=== PATIENT | female | born 1980 | race Caucasian/White ===

== ENCOUNTER → 2018-02-06 | Outpatient (CLI) | payer OTHER ==
--- NOTE | 2018-02-06 12:19 | P.STRESS ---
- Stress Test Note Stress Test Results/Findings: Exam Performed: stress test Exam Date: 02/06/18 Reason for Exam: PALPITATIONS Height: 5 ft 6 in Weight: 58.06 kg Protocol: JOHN Stage: 4 Duration of Exercise: 10:00 Resting Heart Rate: 132 Resting Blood Pressure: 130/74 Maximum Achieved Heart Rate: 196 Maximum Achieved Blood Pressure: 173/76 85% PMHR: 156 100% PMHR: 183 METS: 11.7 Technologist Comment: Stress Test Results/Findings: Baseline heart rate 132 beats a minute Baseline blood pressure 130/74 mmHg baseline 12-lead ECG shows sinus tachycardia without any ST segment abnormalities 6 Patient exercised on a John protocol for 10 minutes achieving a peak heart rate of 196 beats a minute normal blood pressure response to excise She did not appear short of breath either at rest or with exertion There is no ECG ohms for ischemia no arrhythmias noted Impression Sinus tachycardia at baseline No ECG ohms for ischemia no arrhythmias noted with exercise
--- NOTE | 2018-02-06 12:41 | ECHOF ---
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 This was a technically good study. LV size, wall thickness and systolic function are normal, with an EF greater than 55%. The left teri tricular size is normal. The right ventricle is normal in size. The left atrial size is normal. The right atrial size is normal. Functionally bicuspid aortic valve. There is trace mitral regurgitation. Mild tricuspid regurgitation present. There is no evidence of pulmonary hypertension. The right v entricular systolic pressure, as measured by Doppler, is 17.25mmHg. Trace/mild (physiologic) pulmonic regurgitation. The aortic root size is normal. There is no pericardial effusion. CONCLUSIONS -------- 1. LV size, wall thickness and systolic function are normal, with an EF greater than 55%. 2. The left ventricular size is normal. 3. The right ventricle is normal in size. 4. The left atrial size is normal. 5. The right atrial size is normal. 6. Functionally bicuspid aortic valve. 7. There is trace mitral regurgitation. 8. Mild tricuspid regurgitation present. 9. There is no evidence of pulmonary hypertension. 10. The right ventricular systolic pressure, as measured by Doppler, is 17.25mmHg. 11. Trace/mild (physiologic) pulmonic regurgitation. 12. The aortic root size is normal. 13. There is no pericardial effusion. SPORTS CARTOONIST: Natalie Infante RDCS
== END | disposition home or self-care (01) ==
LOC: RADNMMAIN 10:47
PROVIDERS: ATTEND Family Medicine
DX: I07.1 Rheumatic tricuspid insufficiency (principal); Q23.1 Congenital insufficiency of aortic valve
CPT/HCPCS: 93017; 93306

== ENCOUNTER → 2018-03-02 | Outpatient (CLI) | payer OTHER | END | disposition home or self-care (01) | LOC: LABWHC1 15:34 | PROVIDERS: ATTEND Internal Medicine Clinical Cardiac Electrophysiology | DX: R00.0 Tachycardia, unspecified (principal); R00.2 Palpitations | CPT/HCPCS: 36415; 84443 ==

== ENCOUNTER → 2018-03-17 | Outpatient (CLI) | payer OTHER ==
--- NOTE | 2018-03-17 14:30 | XR ---
EXAMINATION TYPE: XR knee complete LT DATE OF EXAM: 03/17/2018 COMPARISON: NONE HISTORY: 37 year-old female left knee pain, posterior and lateral swelling for 2 days TECHNIQUE: 3 views FINDINGS: There is a moderate knee joint effusion. No acute fracture, subluxation, or dislocation. IMPRESSION: Moderate knee joint effusion. No acute osseous abnormality seen. If concern for internal derangement, MRI can be performed.
== END | disposition home or self-care (01) ==
LOC: RADXRMAIN 10:01
PROVIDERS: ATTEND Physician Assistant
DX: M25.462 Effusion, left knee (principal)

== ENCOUNTER → 2018-03-20 | Outpatient (CLI) | payer OTHER ==
--- NOTE | 2018-03-20 12:37 | MR ---
EXAMINATION TYPE: MR knee LT wo con DATE OF EXAM: 03/20/2018 COMPARISON: X-ray dated 03/17/2018 HISTORY: Left knee pain TECHNIQUE: Multiplanar, multisequence imaging of the left knee is performed without IV contrast. FINDINGS: MEDIAL MENISCUS: Anterior and posterior horns are intact without tear. Linear signal posterior horn c ompatible with mucoid degeneration. LATERAL MENISCUS: Increased signal involving the posterior horn is suggestive previous surgery.. CRUCIATE LIGAMENTS: The anterior and posterior cruciate ligaments are intact and unremarkable. COLLATERAL LIGAMENTS: The medial collateral ligament and lateral collateral ligament complex are inta ct and unremarkable. EXTENSOR MECHANISM: Visualized quadriceps and patellar tendons are intact. EFFUSION: No significant suprapatellar joint effusion. POPLITEAL CYST: No popliteal/patel cyst. TRICOMPARTMENT SPACES: Joint spaces are preserved. Cartilage is preserved. BONE MARROW SIGNAL: Faint abnormal signal involving the anterior medial and lateral distal femur sugg estive of bone contusion.. IMPRESSION: 1. Postsurgical change involving the posterior horn lateral meniscus. 2. Nonspecific vague marrow changes involving the distal femur correlate clinically may represent are as of bone contusion. No fracture line.
== END | disposition home or self-care (01) ==
LOC: RADMRIMAIN 09:17
PROVIDERS: ATTEND Physician Assistant
DX: M89.8X5 Other specified disorders of bone, thigh (principal); Z98.890 Other specified postprocedural states

== ENCOUNTER 2020-02-16 08:20 | Emergency (ER) | payer OTHER ==
[2020-02-16 08:25] VITALS: TEMP 98
[2020-02-16] MEDS ORDERED: SODIUM CHLORIDE 0.9% 500 ML 500 ML IV STA (08:45)
[2020-02-16] MEDS ORDERED: KETOROLAC 30 MG/ML 1 ML VIAL IVP STA (08:45)
[2020-02-16] MEDS ORDERED: SODIUM CHLORIDE 0.9% 1,000 ML IV STA (08:45)
--- NOTE | 2020-02-16 09:03 | ED ---
Abdominal Pain HPI - General Chief Complaint: Abdominal Pain Stated Complaint: Abd Pain Time Seen by Provider: 02/16/20 08:30 Source: patient, RN notes reviewed Mode of arrival: ambulatory Limitations: no limitations - History of Present Illness Initial Comments: This is a 39-year-old female with a benign history states her last couple ones she did have an intermittent abdominal pain but over last 2 days has had some generalized abdominal pain does seem to worse with eating food she feels bloated. The pain is achy. Currently she is states is about a 4/10 severity does get up to 6-8/10 however. She's had some diarrhea with it she currently is on her menstrual period she states is no difference in this. Compared to others. No personal history or family history of any abdominal or gynecological issues. She also states she's been having heartburn lately has been taking Prilosec. This does not seem to be helping much MD Complaint: abdominal pain - Related Data Home Medications Medication Instructions Recorded Confirmed Omeprazole Magnesium [PriLOSEC OTC] 20 mg PO BID 02/16/20 02/16/20 Previous Rx's Medication Instructions Recorded Dicyclomine [Bentyl] 10 mg PO TID #15 capsule 02/16/20 Omeprazole [PriLOSEC] 20 mg PO AC-BID #14 cap 02/16/20 Allergies Allergy/AdvReac Type Severity Reaction Status Date / Time No Known Allergies Allergy Verified 02/16/20 09:46 Review of Systems ROS Statement: Those systems with pertinent positive or pertinent negative responses have been documented in the HPI. ROS Other: All systems not noted in ROS Statement are negative. Past Medical History Past Medical History: No Reported History Additional Past Medical History / Comment(s): Sinus tach History of Any Multi-Drug Resistant Organisms: None Reported Additional Past Surgical History / Comment(s): tonsilectomy, heart ablation. Past Psychological History: Anxiety Smoking Status: Never smoker Past Alcohol Use History: Occasional Past Drug Use History: None Reported General Exam - General Exam Comments Initial Comments: This is a well-developed well-nourished awake alert oriented 3 female Limitations: no limitations General appearance: alert, anxious Head exam: Present: atraumatic, normocephalic, normal inspection Eye exam: Present: normal appearance, PERRL, EOMI. Absent: scleral icterus, conjunctival injection, periorbital swelling ENT exam: Present: normal exam, mucous membranes moist Neck exam: Present: normal inspection. Absent: tenderness, meningismus, lymphadenopathy Respiratory exam: Present: normal lung sounds bilaterally. Absent: respiratory distress, wheezes, rales, rhonchi, stridor Cardiovascular Exam: Present: regular rate, normal rhythm, normal heart sounds. Absent: systolic murmur, diastolic murmur, rubs, gallop, clicks GI/Abdominal exam: Present: soft, tenderness (Some tenderness palpation over the epigastric left upper quadrant but especially left lower quadrant area.), normal bowel sounds. Absent: distended, guarding, rebound, rigid Extremities exam: Present: normal inspection, full ROM, normal capillary refill. Absent: tenderness, pedal edema, joint swelling, calf tenderness Back exam: Present: normal inspection Neurological exam: Present: alert, oriented X3, CN II-XII intact Psychiatric exam: Present: normal affect, normal mood Skin exam: Present: warm, dry, intact, normal color. Absent: rash Course Vital Signs 02/16/20 08:22 Temperature 98 F Pulse Rate 122 H Respiratory 18 Rate Blood Pressure 166/82 O2 Sat by Pulse 99 Oximetry Medical Decision Making - Medical Decision Making I did a long discussion with patient he is feeling somewhat improved after the medication and fluids were rendered. She has no family practice doctor or general practitioner I did advise she 5 one she will be referred over to GI for the abdominal issues. She has been taking 800 mg of Motrin she'll be placed on pain medication for this as well as Bentyl. - Lab Data Result diagrams: 02/16/20 09:00 02/16/20 09:00 Lab Results 02/16/20 02/16/20 02/16/20 Range/Units 09:00 09:00 09:00 WBC 4.0 (3.8-10.6) k/uL RBC 3.76 L (3.80-5.40) m/uL Hgb 10.6 L (11.4-16.0) gm/dL Hct 32.8 L (34.0-46.0) % MCV 87.5 (80.0-100.0) fL MCH 28.1 (25.0-35.0) pg MCHC 32.1 (31.0-37.0) g/dL RDW 14.8 (11.5-15.5) % Plt Count 280 (150-450) k/uL Neutrophils % 59 % Lymphocytes % 26 % Monocytes % 7 % Eosinophils % 4 % Basophils % 1 % Neutrophils # 2.4 (1.3-7.7) k/uL Lymphocytes # 1.0 (1.0-4.8) k/uL Monocytes # 0.3 (0-1.0) k/uL Eosinophils # 0.2 (0-0.7) k/uL Basophils # 0.0 (0-0.2) k/uL Sodium 136 L (137-145) mmol/L Potassium 4.4 (3.5-5.1) mmol/L Chloride 103 (98-107) mmol/L Carbon Dioxide 26 (22-30) mmol/L Anion Gap 7 mmol/L BUN 10 (7-17) mg/dL Creatinine 0.64 (0.52-1.04) mg/dL Est GFR (CKD-EPI)AfAm >90 (>60 ml/min/1.73 sqM) Est GFR (CKD-EPI)NonAf >90 (>60 ml/min/1.73 sqM) Glucose 100 H (74-99) mg/dL Plasma Lactic Acid Fermin 0.8 (0.7-2.0) mmol/L Calcium 9.2 (8.4-10.2) mg/dL Magnesium 1.6 (1.6-2.3) mg/dL Total Bilirubin 0.5 (0.2-1.3) mg/dL AST 81 H (14-36) U/L ALT 41 H (4-34) U/L Alkaline Phosphatase 91 (38-126) U/L Total Protein 7.5 (6.3-8.2) g/dL Albumin 4.3 (3.5-5.0) g/dL Amylase 42 (30-110) U/L Lipase 57 (23-300) U/L Urine Color Urine Appearance (Clear) Urine pH (5.0-8.0) Ur Specific Gem (1.001-1.035) Urine Protein (Negative) Urine Glucose (UA) (Negative) Urine Ketones (Negative) Urine Blood (Negative) Urine Nitrite (Negative) Urine Bilirubin (Negative) Urine Urobilinogen (<2.0) mg/dL Ur Leukocyte Esterase (Negative) Urine RBC (0-5) /hpf Urine WBC (0-5) /hpf Ur Squamous Epith Cells (0-4) /hpf Hyaline Casts (0-2) /lpf Urine Mucus (None) /hpf Urine HCG, Qual (Not Detectd) 02/16/20 02/16/20 Range/Units 09:07 09:07 WBC (3.8-10.6) k/uL RBC (3.80-5.40) m/uL Hgb (11.4-16.0) gm/dL Hct (34.0-46.0) % MCV (80.0-100.0) fL MCH (25.0-35.0) pg MCHC (31.0-37.0) g/dL RDW (11.5-15.5) % Plt Count (150-450) k/uL Neutrophils % % Lymphocytes % % Monocytes % % Eosinophils % % Basophils % % Neutrophils # (1.3-7.7) k/uL Lymphocytes # (1.0-4.8) k/uL Monocytes # (0-1.0) k/uL Eosinophils # (0-0.7) k/uL Basophils # (0-0.2) k/uL Sodium (137-145) mmol/L Potassium (3.5-5.1) mmol/L Chloride (98-107) mmol/L Carbon Dioxide (22-30) mmol/L Anion Gap mmol/L BUN (7-17) mg/dL Creatinine (0.52-1.04) mg/dL Est GFR (CKD-EPI)AfAm (>60 ml/min/1.73 sqM) Est GFR (CKD-EPI)NonAf (>60 ml/min/1.73 sqM) Glucose (74-99) mg/dL Plasma Lactic Acid Fermin (0.7-2.0) mmol/L Calcium (8.4-10.2) mg/dL Magnesium (1.6-2.3) mg/dL Total Bilirubin (0.2-1.3) mg/dL AST (14-36) U/L ALT (4-34) U/L Alkaline Phosphatase (38-126) U/L Total Protein (6.3-8.2) g/dL Albumin (3.5-5.0) g/dL Amylase (30-110) U/L Lipase (23-300) U/L Urine Color Yellow Urine Appearance Clear (Clear) Urine pH 5.5 (5.0-8.0) Ur Specific Gem 1.011 (1.001-1.035) Urine Protein Negative (Negative) Urine Glucose (UA) Negative (Negative) Urine Ketones Trace H (Negative) Urine Blood Moderate H (Negative) Urine Nitrite Negative (Negative) Urine Bilirubin Negative (Negative) Urine Urobilinogen <2.0 (<2.0) mg/dL Ur Leukocyte Esterase Negative (Negative) Urine RBC 2 (0-5) /hpf Urine WBC <1 (0-5) /hpf Ur Squamous Epith Cells <1 (0-4) /hpf Hyaline Casts 1 (0-2) /lpf Urine Mucus Rare H (None) /hpf Urine HCG, Qual Not Detected (Not Detectd) - Radiology Data Radiology results: report reviewed (I did review the imaging and report no ev idence of acute findings there is evidence of a hemangioma in the liver which patient has a history of she knows. Also a large uterus though the patient is not symptomatic in the lower abdomen.), image reviewed Disposition Clinical Impression: Abdominal pain, Diarrhea Disposition: HOME SELF-CARE Condition: Good Instructions (If sedation given, give patient instructions): Abdominal Pain (ED), Acute Diarrhea (ED) Additional Instructions: May continue with current medications Prescriptions: Dicyclomine [Bentyl] 10 mg PO TID #15 capsule Omeprazole [PriLOSEC] 20 mg PO AC-BID #14 cap Is patient prescribed a controlled substance at d/c from ED?: No Referrals: None,Stated [Primary Care Provider] - 1-2 days Jonathan Renee MD [STAFF PHYSICIAN] - 1-2 days
[2020-02-16 09:28] LABS: Basophils % (A) 1 %; Eosinophils # (A) 0.2 k/uL (0-0.7); Eosinophils % (A) 4 %; HCT 32.8 % (34.0-46.0); HGB 10.6 gm/dL (11.4-16.0); Lymphocytes % (A) 26 %; MCH 28.1 pg (25.0-35.0); MCHC 32.1 g/dL (31.0-37.0); MCV 87.5 fL (80.0-100.0); Mean Platelet Volume 8.2; Monocytes # (A) 0.3 k/uL (0-1.0); Monocytes % (A) 7 %; Neutrophils # (A) 2.4 k/uL (1.3-7.7); Neutrophils % (A) 59 %; Platelet Count 280 k/uL (150-450); RBC 3.76 m/uL (3.80-5.40); RDW 14.8 % (11.5-15.5)
--- NOTE | 2020-02-16 09:28 | XR ---
EXAMINATION TYPE: XR KUB DATE OF EXAM: 02/16/2020 COMPARISON: None INDICATION: Abdomen pain TECHNIQUE: Single view abdomen upright view FINDINGS: There is a normal bowel gas pattern. Psoas margins are normal. No organomegaly is present. Phleboliths are within the pelvis. IMPRESSION: 1. Unremarkable Abdomen
[2020-02-16 09:38] LABS: ALT 41 U/L (4-34); AST 81 U/L (14-36); African American GFR (CKD) >90 (>60 ml/min/1.73 sqM); Albumin 4.3 g/dL (3.5-5.0); Alkaline Phosphatase 91 U/L (38-126); Amylase 42 U/L (30-110); Anion Gap 7 mmol/L; Blood Urea Nitrogen 10 mg/dL (7-17); Calcium 9.2 mg/dL (8.4-10.2); Carbon Dioxide 26 mmol/L (22-30); Chloride 103 mmol/L (98-107); Glucose 100 mg/dL (74-99); Magnesium 1.6 mg/dL (1.6-2.3); Non-African American GFR(CKD) >90 (>60 ml/min/1.73 sqM); Potassium 4.4 mmol/L (3.5-5.1); Sodium 136 mmol/L (137-145); Total Bilirubin 0.5 mg/dL (0.2-1.3); Total Protein 7.5 g/dL (6.3-8.2)
[2020-02-16 09:38] LABS: Appearance,Urine Clear (Clear); Bilirubin,Urine Negative (Negative); Blood,Urine Moderate (Negative); Color,Urine Yellow; Glucose,Urine (UA) Negative (Negative); Hyaline Casts,Urine 1 /lpf (0-2); Ketones,Urine Trace (Negative); Leukocyte Esterase,Urine Negative (Negative); Mucus,Urine Rare /hpf; Nitrite,Urine Negative (Negative); PH, Urine 5.5 (5.0-8.0); Protein,Urine Negative (Negative); RBC,Urine 2 /hpf (0-5); Specific Gravity,Urine 1.011 (1.001-1.035); Squamous Epithelial Cell,Urine <1 /hpf (0-4); Urobilinogen,Urine <2.0 mg/dL (<2.0); WBC,Urine <1 /hpf (0-5)
[2020-02-16] MEDS ORDERED: FAMOTIDINE 20 MG/2 ML VIAL IV STA (10:01)
[2020-02-16] MEDS ORDERED: methylPREDNISolone SOD SUCCI 125 MG/2 ML VIAL IV STA (10:01)
[2020-02-16] MEDS ORDERED: diphenhydrAMINE 50 MG/ML 1 ML VIAL IVP STA (10:01)
--- NOTE | 2020-02-16 10:58 | CT ---
EXAMINATION TYPE: CT abdomen pelvis w con DATE OF EXAM: 02/16/2020 COMPARISON: None INDICATION: generalized abdominal pain, diarrhea DLP: 702.5 mGycm, Automated exposure control for dose reduction was used. CONTRAST: 100 mL of Isovue 300. Study performed without Oral Contrast TECHNIQUE: Axial images were obtained from above the diaphragm to the pubic rami in the axial plane a t 5 mm thick sections. Reconstructed images are reviewed on the computer in the coronal plane. FINDINGS: Limited CT sections are obtained the lung bases. The lung bases are clear. CT ABDOMEN: Liver: There is an irregular peripherally enhancing lesion within the right upper outer liver measuri ng approximately 2.2 cm. This could be hemangioma. There are multiple additional hypodensities some o f which has some peripheral enhancement suggesting additional hemangiomas. Not all densities have per ipheral enhancement, example image series 201 image 12. This irregular hypodensity with indistinct ma rgins measures 1.6 cm. Other etiologies should be considered. Consider ultrasound abdomen for additio nal evaluation. Spleen: Normal Pancreas: Normal Adrenal glands: The adrenal glands are normal. Gallbladder: Normal Kidneys: No masses are evident. No hydronephrosis is present. No cysts are present. Delayed images were obtained through the kidneys, which remain unremarkable. Aorta: Normal Inferior vena cava: Normal. CT PELVIS: Loops of bowel within the abdomen and pelvis are normal. The studies performed without oral contr ast causing limitation on evaluation. Fecal debris is within the colon. Appendix: Surgical suture at the cecum suggests prior appendectomy. No suspicious inflammatory change s or dilated tubular structures are evident. Urinary bladder: Decompressed and cannot be evaluated Genitourinary structures: Uterus is large and bulky with a thickened endometrial canal. Consider teodora tional evaluation with ultrasound. Adnexal regions appear within normal limits. Osseous structures: No suspicious lytic or sclerotic lesions. IMPRESSIONS: 1. Large bulky uterus with thickened endometrial canal. Pelvic ultrasound is recommended for additio nal evaluation. 2. Scattered hypodensities with peripheral enhancement within the liver likely on the basis of wendy iomas. Some do not demonstrate complete opacification or peripheral enhancement suggesting other etio logies should be considered within the differential at these locations. Recommend abdomen ultrasound with attention to the liver for additional evaluation.
[2020-02-16 12:36] VITALS: BP 121/89; PULSE 79; RESP 16
== END 2020-02-16 12:36 | disposition home or self-care (01) ==
LOC: EC 08:20
DX: R10.84 Generalized abdominal pain (principal); R19.7 Diarrhea, unspecified; R12 Heartburn
CPT/HCPCS: 36415; 80053; 82150; 83605; 83690; 83735; 85025; 81001; 81025; 74018; 74177; 99284; 96374; 96375 ×3; 96361 ×3; J1200; J2930; J1885; Q9967

== ENCOUNTER 2020-06-12 10:36 | Day surgery (SDC) | payer OTHER ==
[2020-06-07 15:45] VITALS: BMI 20.9
[~2020-06-12 10:36] MED LIST: SODIUM CHLORIDE 0.9% 1,000 ML IV SCH
[2020-06-12 10:59] VITALS: TEMP 98.2
--- NOTE | 2020-06-12 13:18 | P.EPPROC ---
- EP Procedure Note Electrophysiology Procedure Note: Diagnosis Recurrent presyncope and palpitations Twelve-lead ECG shows sinus rhythm 80 beats a minute normal VA narrow QRS normal ST segments no delta waves with normal qt interval Tilt table test per protocol Baseline heart rate 92 beats a minute Baseline blood pressure 139/97 mmHg Patient was tilted upright at an angle of 70 per protocol within the first 10 minutes heart rate increased up 138 beats a minute sinus tachycardia She felt nauseous at that time and was trembling Subsequently there was a drop in her blood pressure to 82/57 mmHg and that time she felt very sweaty At the end when she was laid supine heart rate came down to 79 beats a minute and she felt better Impression Normal EKG Postural tachycardia syndrome Plan Try nadolol 20 mg by mouth daily Strength training lower extremities, endurance training Increase fluid and salt intake
--- NOTE | 2020-06-12 13:21 | P.PRLE ---
RE: Kim Huddleston Dear Nicky Alvarez underwent tilt table test which confirmed postural tachycardia syndrome with secondary neurocardiogenic phenomena I will start her on nadolol 20 mg by mouth daily I would Encourage her to increase fluid and salt intake and strength in the lower extremity muscles Thank you for entrusting me with the care of the patient Warm regards Sincerely Slava Mccain
[2020-06-12 15:09] VITALS: RESP 16
[2020-06-12 15:12] VITALS: BP 138/83; PULSE 86
== END 2020-06-12 13:23 | disposition home or self-care (01) ==
LOC: CATHEP 10:36
PROVIDERS: ATTEND Internal Medicine Clinical Cardiac Electrophysiology
DX: R55 Syncope and collapse (principal); I49.8 Other specified cardiac arrhythmias; Q23.1 Congenital insufficiency of aortic valve; I49.3 Ventricular premature depolarization
CPT/HCPCS: 81025; 93660

== ENCOUNTER → 2020-06-14 | Outpatient (CLI) | payer OTHER ==
[2020-06-14 11:46] LABS: Basophils # (A) 0.1 k/uL (0-0.2); Basophils % (A) 2 %; Eosinophils # (A) 0.1 k/uL (0-0.7); Eosinophils % (A) 4 %; HCT 30.2 % (34.0-46.0); HGB 9.5 gm/dL (11.4-16.0); Hypochromasia Moderate; Lymphocytes # (A) 1.1 k/uL (1.0-4.8); Lymphocytes % (A) 40 %; MCH 26.3 pg (25.0-35.0); MCHC 31.6 g/dL (31.0-37.0); MCV 83.4 fL (80.0-100.0); Mean Platelet Volume 7.8; Monocytes # (A) 0.2 k/uL (0-1.0); Monocytes % (A) 5 %; Neutrophils # (A) 1.3 k/uL (1.3-7.7); Neutrophils % (A) 46 %; Platelet Count 261 k/uL (150-450); RBC 3.62 m/uL (3.80-5.40); RDW 15.1 % (11.5-15.5); WBC 2.8 k/uL (3.8-10.6)
[2020-06-14 11:56] LABS: African American GFR (CKD) >90 (>60 ml/min/1.73 sqM); Anion Gap 8 mmol/L; Blood Urea Nitrogen 11 mg/dL (7-17); Calcium 8.7 mg/dL (8.4-10.2); Carbon Dioxide 24 mmol/L (22-30); Chloride 105 mmol/L (98-107); Glucose 87 mg/dL (74-99); Non-African American GFR(CKD) >90 (>60 ml/min/1.73 sqM); Potassium 4.5 mmol/L (3.5-5.1); Sodium 137 mmol/L (137-145)
== END | disposition home or self-care (01) ==
LOC: LABPAT 10:45
PROVIDERS: ATTEND Obstetrics & Gynecology
DX: Z01.818 Encounter for other preprocedural examination (principal)
CPT/HCPCS: 36415; 80048; 85025; 86850; 86900; 86901

== ENCOUNTER 2020-06-22 05:55 | Observation (INO) | payer OTHER ==
--- NOTE | 2020-06-20 16:24 | P.HPOB ---
History of Present Illness H&P Date: 06/20/20 Chief Complaint: Menorrhagia Kim is a 39-year-old female who has daily heavy menses. It is severely limited her lifestyle and as she has a large fibroid uterus is well her options for treating her limited. She does have a history of hormonal related cysts and gross on her liver cysts Take control she also has a history of heart clots so Lysteda is likely contraindicated as well. Due to the large fibroid a NovaSure is unlikely to completely resolve her symptoms therefore she is scheduled for a robotic-assisted laparoscopic hysterectomy with bilateral salpingectomy possible EVE and possible BSO. Risks/benefits/alternatives were reviewed with the patient in detail and did include but were not limited to bleeding and infection, damage to bladder/bowel/nerves/specimens/ureters and potential need for further surgeries. All questions are answered for her at this time and she was cleared by her primary care provider for this surgery. Past Medical History Past Medical History: No Reported History Additional Past Medical History / Comment(s): Sinus tach History of Any Multi-Drug Resistant Organisms: None Reported Additional Past Surgical History / Comment(s): tonsilectomy, heart ablation. Past Psychological History: Anxiety Smoking Status: Never smoker Past Alcohol Use History: Occasional Past Drug Use History: None Reported Medications and Allergies Home Medications Medication Instructions Recorded Confirmed Type Omeprazole Magnesium [PriLOSEC OTC] 20 mg PO DAILY 02/16/20 06/12/20 History nadoloL [Nadolol] 20 mg PO DAILY #30 tablet 06/12/20 Rx Allergies Allergy/AdvReac Type Severity Reaction Status Date / Time No Known Allergies Allergy Verified 06/12/20 10:54 Exam Osteopathic Statement: *. No significant issues noted on an osteopathic structural exam other than those noted in the History and Physical/Consult. - OBG Physical Exam Breast: both: normal (no masses) Abdomen: bowel sounds normal, no diffuse tenderness, no bruit present, no guarding noted, no hepatomegaly, no splenomegaly, no mass Vulva: both: normal Vagina: normal moisture, no discharge Cervix: no lesion, no discharge Uterus: normal size, normal contour Adnexa: both: normal Anus/Rectum: normal perianal skin, no rectal mass, no hemorrhoids, heme negative
[2020-06-21 09:09] VITALS: BMI 22.1
[~2020-06-22 05:55] MED LIST changes: +DEXAMETHASONE SOD PHOSPHATE 4 MG/ML 1 ML VIAL IV ONE; +HYDROmorphone 0.5 MG/0.5 ML SYRINGE IVP PRN; +MIDAZOLAM 2 MG/2 ML VIAL IV PRN; +ONDANSETRON 4 MG/2 ML VIAL IVP ONE; +SCOPOLAMINE 1.5MG/72HR PATCH TRANSDERM ONE; -SODIUM CHLORIDE 0.9% 1,000 ML IV SCH
[2020-06-22] MEDS: LACTATED RINGERS 1,000 ML IV SCH ×2 (06:43→11:34)
[2020-06-22] MEDS ORDERED: MIDAZOLAM 2 MG/2 ML VIAL ONE (07:44)
[2020-06-22] MEDS ORDERED: GLYCOPYRROLATE 0.2 MG/ML 2 ML VIAL ONE (07:44)
[2020-06-22] MEDS ORDERED: LIDOCAINE 1% INJ 10MG/ML (20 ML MDV) ONE (07:44)
[2020-06-22] MEDS ORDERED: fentaNYL (PF) 50 MCG/ML 2 ML AMP ONE (07:44)
[2020-06-22] MEDS ORDERED: PROPOFOL 10 MG/ML 20 ML VIAL IV ONE (07:44)
[2020-06-22] MEDS ORDERED: NEOSTIGMINE 1 MG/ML 10 ML VIAL ONE (07:44)
[2020-06-22] MEDS ORDERED: KETOROLAC 15 MG/ML 1 ML VIAL ONE (07:44)
[2020-06-22] MEDS ORDERED: ROCURONIUM 10 MG/ML (10 ML VIAL) IV ONE (07:44)
[2020-06-22] MEDS ORDERED: BUPIVACAINE (PF) 0.25% 30 ML VIAL SQ ONE ×2 (08:22)
[2020-06-22] MEDS ORDERED: LACTATED RINGERS 1,000 ML IV ONE ×2 (08:45→10:25)
[2020-06-22] MEDS ORDERED: diphenhydrAMINE 50 MG/ML 1 ML VIAL IVP PRN (09:20)
[2020-06-22] MEDS ORDERED: ONDANSETRON 4 MG/2 ML VIAL IVP PRN (09:20)
[2020-06-22] MEDS ORDERED: SIMETHICONE 80 MG CHEWABLE PO PRN (09:20)
[2020-06-22] MEDS ORDERED: HYDROcodone/APAP 7.5-325MG 1 EACH TAB PO PRN (09:22)
[2020-06-22] MEDS ORDERED: HYDROmorphone 0.5 MG/0.5 ML SYRINGE IVP ONE ×3 (09:56→10:30)
[2020-06-22] MEDS ORDERED: ONDANSETRON 4 MG/2 ML VIAL IVP ONE (10:03)
[2020-06-22] MEDS: KETOROLAC 15 MG/ML 1 ML VIAL IVP PRN ×2 (15:05→22:20)
[2020-06-22] MEDS: SENNOSIDES-DOCUSATE SODIUM 1 EACH TAB PO SCH (22:13)
[2020-06-23] MEDS ORDERED: PANTOPRAZOLE 40 MG TABLET PO SCH (07:30)
--- NOTE | 2020-06-23 09:07 | P.DS ---
Providers Date of admission: 06/23/20 00:18 Expected date of discharge: 06/23/20 Attending physician: Orlando Emmanuel Primary care physician: [facility] Course: Kim is doing very well postop day 1. She is ambulating, voiding and tolerating her diet. She relates some right shoulder/upper chest pain likely secondary to the gas. Her lungs are however clear to auscultation bilaterally in all quadrants. Heart is regular, abdomen is soft with positive bowel sounds noted her incisions are clean dry and intact. Extremities are without pain/redness/swelling. Vital signs are stable and afebrile. Discussed options but she is ready to go home. She believes she is stable for discharge she is aware to have no heavy lifting, limit driving, and pelvic rest. If any high temperatures, heavy bleeding, or severe pain she will notify our office or the emergency room all other questions are answered for her at this time and she is stable for discharge this time. Patient Condition at Discharge: Good Plan - Discharge Summary Discharge Rx Participant: Yes New Discharge Prescriptions: New Ibuprofen [Motrin] 600 mg PO Q6HR PRN #30 tab PRN Reason: Pain HYDROcodone/APAP 5-325MG [[place] 5-325] 1 tab PO Q4HR PRN #30 tab PRN Reason: Pain No Action Omeprazole Magnesium [PriLOSEC OTC] 20 mg PO DAILY Discharge Medication List Omeprazole Magnesium [PriLOSEC OTC] 20 mg PO DAILY 02/16/20 [History] HYDROcodone/APAP 5-325MG [[place] 5-325] 1 tab PO Q4HR PRN #30 tab 06/23/20 [Rx] Ibuprofen [Motrin] 600 mg PO Q6HR PRN #30 tab 06/23/20 [Rx] Follow up Appointment(s)/Referral(s): Orlando Emmanuel DO [Doctor of Osteopathic Medicine] - 1 Week Activity/Diet/Wound Care/Special Instructions: No heavy lifting, limit stairs and driving, and pelvic rest. If any high temperatures, heavy bleeding, or severe pain call my office
[2020-06-23 09:42] VITALS: BP 108/68; PULSE 74; RESP 14; TEMP 98.6
[2020-06-23] MEDS: SENNOSIDES-DOCUSATE SODIUM 1 EACH TAB PO SCH (10:19)
[2020-06-23 10:51] LABS: HCT 29.1 % (34.0-46.0); HGB 9.1 gm/dL (11.4-16.0); Hypochromasia Moderate; MCH 26.6 pg (25.0-35.0); MCHC 31.4 g/dL (31.0-37.0); MCV 84.7 fL (80.0-100.0); Mean Platelet Volume 8.1; Platelet Count 284 k/uL (150-450); RBC 3.43 m/uL (3.80-5.40); RDW 15.7 % (11.5-15.5); WBC 4.9 k/uL (3.8-10.6)
[2020-06-23 12:14] LABS: Eosinophils # (M) 0.05 k/uL (0-0.7); Lymphocytes # (M) 1.91 k/uL (1.0-4.8); Monocytes # (M) 0.29 k/uL (0-1.0); Neutrophils # (M) 2.65 k/uL (1.3-7.7); Neutrophils % (M) 54 %; Nucleated Red Blood Cells 0 /100 WBC (0-0); Total Cells Counted 100
--- NOTE | 2020-06-30 08:20 | P.OP ---
Date of Procedure: 06/22/20 Preoperative Diagnosis: Menorrhagia and fibroid uterus Postoperative Diagnosis: Same Procedure(s) Performed: Robotic-assisted laparoscopic hysterectomy with bilateral salpingectomy Anesthesia: ROSALINO Surgeon: Orlando Emmanuel Acoustic Sensor Operator #1: Laurel Pettit Estimated Blood Loss (ml): 100 IV fluids (ml): 1,000 Urine output (ml): 200 Pathology: other (Uterus and cervix and fallopian tubes) Condition: stable Disposition: floor Operative Findings: Pathology pending otherwise grossly enlarged uterus Description of Procedure: Patient was taken to the operating suite where a general anesthetic was found be adequate. She was prepped and draped in normal sterile fashion and placed in the dorsal lithotomy position. Initially a weighted speculum was inserted in the vagina and anterior lip of the surgery identified and grasped with single- tooth tenaculum. Cervix was then sounded and stay sutures were placed at 3 and 9. Cup size was measured and a Karla manipulator was inserted without difficulty. Other incidents were then removed and Bacon cath was placed. Once this was completed gloves were changed and attention was turned to abdominal portion procedure where course of Marcaine was injected periumbilically and through this injected anesthetic 8 mm skin incision was made. Through this incision, under direct visualization with an optical trocar and sleeve, the camera was inserted. Once peritoneal placement was assured gas was allowed to fully insufflate the abdomen and patient's placement steep Trendelenburg position of approximately 25. 2 lateral ports were then placed 10 cm lateral to the umbilicus bilaterally and then a fourth port and sleeve was inserted between the left lateral and medial port. Camera port was then exchanged for robotic port and the da Avani robot was brought in and docked. Once fully docked a [place] grasper was used in the one arm and a Metzenbaum scissors and the 2 arm and at this point broke scrub and went to the console. Observations pelvis were noted. Initially the uterus was elevated and tipped to the right side and the utero-ovarian ligament was identified cauterized and transected. Mesosalpinx tissues and fallopian tube were then excised. Once to the level of the round ligament round ligament was cauterized transected and the anterior and posterior leafs the broad ligament were developed. Moving inferiorly along the lateral border of the vascularity left side of the uterus was cauterized. Once at the level of the bladder flap was undermined with [place] and incised across face the uterus with a scissor and the bladder was then bluntly dissected off of the anterior uterus and out of the operative field. Right side of the uterus was then inserted fashion developed. Once was completed anterior colpotomy was made and following the 3 and 60 fashion Clockwise cheating head when necessary to maintain excellent hemostasis the cervix was from the vaginal mucosa and once this was completed, uterus was brought down into the vagina to maintain obtain pneumoperitoneum. Once excellent hemostasis was felt to be obtained along all the pedicles incidents were exchanged for a make suture cut and cardia grasper and the vaginal cuff was closed in running fashion with old V lock suture. Pelvis was then suction irrigated no bleeding is noted therefore all incidents removed and gas was allowed to expel from the abdomen. 5 deep breaths were provided during this process. Dr. Pettit then close incision subcuticularly and injected the remaining lidocaine around the incisions and I did a cystoscopy revealing excellent flow from both ureteral jets. Sponge, lap, needle counts were correct 2. Patient was then taken to the recovery room in stable and satisfactory condition.
== END 2020-06-23 10:39 ==
LOC: OR 05:55 → 6PED 09:34 → OR 06-23 00:27
PROVIDERS: ADMIT Obstetrics & Gynecology; ATTEND Obstetrics & Gynecology
DX: N92.0 Excessive and frequent menstruation with regular cycle (principal); D25.9 Leiomyoma of uterus, unspecified; I49.8 Other specified cardiac arrhythmias; K21.9 Gastro-esophageal reflux disease without esophagitis; Z98.890 Other specified postprocedural states; K76.89 Other specified diseases of liver; Z79.3 Long term (current) use of hormonal contraceptives; R00.0 Tachycardia, unspecified; F41.9 Anxiety disorder, unspecified; Q23.1 Congenital insufficiency of aortic valve; R00.2 Palpitations; I49.3 Ventricular premature depolarization; Z79.899 Other long term (current) drug therapy; Z91.013 Allergy to seafood
CPT/HCPCS: 81025; 85025; 88307; 58571; G0378; J2250; J1100; J2710; J0690; J2405; J2001; J3010; J1885; J2704; J1170; 36415; 86850; 86900; 86901

== ENCOUNTER → 2023-02-24 | Outpatient (CLI) | payer OTHER ==
--- NOTE | 2023-02-24 11:27 | CA ---
Transthoracic Echo Report Name: Kim Resendiz Age: 42 Gender: F : 1980 Exam Date: 02/24/2023 09:48 Exam Location: [facility] Ht (in): 66 Wt (lb): 130 Ordering Physician: Olman Cordero DO Attending/Referring Phys: Facilities Manager Erika Perdomo [facility] Procedure CPT: Indications: Q23.1 CONGENITAL INSUFFICIENCY OF AORTIC VALVE Cardiac Hx: Technical Quality: Fair Contrast 1: Total Dose (mL): Contrast 2: Total Dose (mL): MEASUREMENTS (Male / Female) Normal Values 2D ECHO LV Diastolic Diameter PLAX 4.3 cm 4.2 - 5.9 / 3.9 - 5.3 cm LV Systolic Diameter PLAX 2.9 cm IVS Diastolic Thickness 0.9 cm 0.6 - 1.0 / 0.6 - 0.9 cm LVPW Diastolic Thickness 0.8 cm 0.6 - 1.0 / 0.6 - 0.9 cm LV Relative Wall Thickness 0.4 LVOT Diameter 2.0 cm Ascending Aorta Diameter 3.9 cm M-MODE Aortic Root Diameter MM 2.8 cm LA Systolic Diameter MM 2.5 cm LA Ao Ratio MM 0.9 AV Cusp Separation MM 1.9 cm DOPPLER AV Peak Velocity 140.0 cm/s AV Peak Gradient 7.8 mmHg AV Mean Velocity 103.2 cm/s AV Mean Gradient 4.7 mmHg AV Velocity Time Integral 28.9 cm LVOT Peak Velocity 92.6 cm/s LVOT Peak Gradient 3.4 mmHg LVOT Velocity Time Integral 18.8 cm LVOT Stroke Volume 61.4 cm??? LVOT Stroke Volume Index 36.9 ml/m??? LVOT Cardiac Index 3225.6 cm???/min???m??? AV Area Cont Eq vti 2.1 cm??? AV Area Cont Eq pk 2.2 cm??? Mitral E Point Velocity 57.3 cm/s Mitral A Point Velocity 76.1 cm/s Mitral E to A Ratio 0.8 MV Deceleration Time 157.5 ms LV E' Lateral Velocity 6.7 cm/s Mitral E to LV E' Lateral Ratio 8.5 LV E' Septal Velocity 6.6 cm/s Mitral E to LV E' Septal Ratio 8.6 TR Peak Velocity 153.2 cm/s TR Peak Gradient 9.4 mmHg Right Atrial Pressure 3.0 mmHg Pulmonary Artery Systolic Pressu 12.4 mmHg Right Ventricular Systolic Press 12.4 mmHg FINDINGS Left Ventricle Normal Left ventricular size, wall thickness, systolic function with no obvious regional wall motion abnormalities. Left ventricular ejection fraction is estimated at 55-60%. Right Ventricle Normal right ventricular size and function. Right Atrium Normal right atrial size. Left Atrium Normal left atrial size. Mitral Valve Structurally normal mitral valve. Mitral valve thickened. Trace mitral regurgitation. Aortic Valve Bicuspid aortic valve. No aortic valve stenosis or regurgitation. Tricuspid Valve Structurally normal tricuspid valve. Trace tricuspid regurgitation. Pulmonic Valve Structurally normal pulmonic valve. No pulmonic regurgitation. Pericardium No pericardial effusion. Aorta Normal size aortic root. Mildly dilated proximal ascending aorta CONCLUSIONS Normal LV size and systolic function. Aortic valve is bicuspid without significant stenosis or regurgitation. There is minimal mitral and tricuspid regurgitation. Mildly dilated ascending aorta. No pericardial effusion Previewed by: Dr. Stephen Sandoval MD (Electronically Signed) Final Date: 24 February 2023 11:26
== END | disposition home or self-care (01) ==
LOC: RADECHMAIN 09:38
PROVIDERS: ATTEND Family Medicine
DX: Q23.1 Congenital insufficiency of aortic valve (principal)
CPT/HCPCS: 93306

== ENCOUNTER 2023-05-29 09:32 | Emergency (ER) | payer OTHER ==
[2023-05-29] MEDS ORDERED: SODIUM CHLORIDE 0.9% 1,000 ML IV STA (11:20)
[2023-05-29] MEDS ORDERED: ONDANSETRON 4 MG/2 ML VIAL IVP STA (11:20)
[2023-05-29] MEDS ORDERED: HYDROmorphone 1 MG/ML 1 ML SYRINGE IVP STA (11:21)
--- NOTE | 2023-05-29 12:34 | CT ---
EXAMINATION TYPE: CT abdomen pelvis wo con DATE OF EXAM: 05/29/2023 COMPARISON: 02/16/2020 HISTORY: Abdominal pain, possible renal stones CT DLP: 415 mGycm Automated exposure control for dose reduction was used. TECHNIQUE: Helical acquisition of images was performed from the lung bases through the pelvis. FINDINGS: LUNG BASES: No significant abnormality is appreciated. LIVER/GB: No significant abnormality is appreciated. PANCREAS: No significant abnormality is seen. SPLEEN: No significant abnormality is seen. ADRENALS: No significant abnormality is seen. KIDNEYS: No significant abnormality is seen. URINARY BLADDER: No significant abnormality is seen. ADENOPATHY: None visualized. OSSEOUS STRUCTURES: No significant abnormality is seen. BOWEL: There is pericolonic inflammatory change within the sigmoid colon and distal left colon. Ther e is a diverticula in the region. Findings are felt to be compatible with acute diverticulitis. No ad jacent abscess. There is a small amount of fluid in the paracolic gutter. No free air. Appendix seymour l. OTHER: Aorta of normal caliber. Small fat-containing periumbilical hernia. There is a 1.1 cm left adn exal nodule most likely ovarian and may relate to be adjacent to the area of inflammation.. IMPRESSION: 1. ACUTE DISTAL LEFT COLONIC AND SIGMOID DIVERTICULITIS. UNCOMPLICATED WITH NO EVIDENCE OF FREE AIR O R ABSCESS.
--- NOTE | 2023-05-29 12:42 | ED ---
Abdominal Pain HPI - General Chief Complaint: Abdominal Pain Stated Complaint: ABD PAIN Time Seen by Provider: 05/29/23 11:12 Source: patient, RN notes reviewed Mode of arrival: wheelchair Limitations: no limitations - History of Present Illness Initial Comments: Patient is a 42-year-old female presenting to the ER with chief complaint of left-sided abdominal pain. Patient was sent here by her PCP. Patient states the pain started a few days ago. Has been constant. Patient states [id number] medications for pain control is not helping. Patient denies any fevers, nausea, vomiting, diarrhea, constipation, night sweats/chills. Patient has no other complaints at this time. - Related Data Home Medications Medication Instructions Recorded Confirmed Omeprazole Magnesium [PriLOSEC OTC] 20 mg PO DAILY 02/16/20 05/29/23 Cetirizine HCl [Zyrtec] 10 mg PO DAILY 05/29/23 05/29/23 amLODIPine 10 mg PO DAILY 05/29/23 05/29/23 cloNIDine HCL 0.1 mg PO HS 05/29/23 05/29/23 lisinopriL [Zestril] 20 mg PO DAILY 05/29/23 05/29/23 Previous Rx's Medication Instructions Recorded Amoxic-Pot Clav 875-125Mg 1 tab PO Q12HR #20 tab 05/29/23 [Augmentin 875-125] Allergies Allergy/AdvReac Type Severity Reaction Status Date / Time lactose AdvReac Intermediate Nausea Verified 05/29/23 13:46 shellfish derived [Shellfish] AdvReac Unknown blacked out Verified 05/29/23 13:46 Milk Containing Products AdvReac Nausea Verified 05/29/23 13:46 (Dairy) [Dairy] Review of Systems ROS Statement: Those systems with pertinent positive or pertinent negative responses have been documented in the HPI. ROS Other: All systems not noted in ROS Statement are negative. Past Medical History Past Medical History: GERD/Reflux Additional Past Medical History / Comment(s): ( Sinus tachycardia ( ablation), new diagnosis of POTS, stomach ulcer (teenager).,menorrhagia, anemia., Hx of fever with surgeries since a child. History of Any Multi-Drug Resistant Organisms: None Reported Past Surgical History: Cardiac Ablation, Hysterectomy, Orthopedic Surgery, Tonsi llectomy Additional Past Surgical History / Comment(s): ear tubes, laparoscopy for endometriosis (18 yrs old), left meniscus repair ([facility]) lap hysterectomy Past Anesthesia/Blood Transfusion Reactions: Postoperative Nausea & Vomiting (P ONV) Additional Past Anesthesia/Blood Transfusion Reaction / Comment(s): "Fever after anesthesia." Denies Malignant Hyperthermia. Past Psychological History: Anxiety Smoking Status: Never smoker Past Alcohol Use History: Occasional Past Drug Use History: None Reported - Past Family History Father Family Medical History: No Reported History Mother Family Medical History: No Reported History General Exam Limitations: no limitations Respiratory exam: Present: normal lung sounds bilaterally. Absent: respiratory distress, wheezes, rales, rhonchi, stridor Cardiovascular Exam: Present: regular rate, normal rhythm, normal heart sounds. Absent: systolic murmur, diastolic murmur, rubs, gallop, clicks GI/Abdominal exam: Present: soft, tenderness (Left side), guarding, normal bowel sounds Course Vital Signs 05/29/23 05/29/23 05/29/23 09:37 12:30 13:30 Temperature 98.7 F Pulse Rate 94 89 86 Respiratory 18 18 18 Rate Blood Pressure 152/90 145/90 120/91 O2 Sat by Pulse 100 97 98 Oximetry 05/29/23 14:30 Temperature Pulse Rate 76 Respiratory 18 Rate Blood Pressure 107/66 O2 Sat by Pulse 97 Oximetry Medical Decision Making - Medical Decision Making Was pt. sent in by a medical professional or institution (Dr. PA, DOOR REPAIRMAN, urgent care, hospital, or prison...) When possible be specific @ -Patient was sent by her PCP. Did you speak to anyone other than the patient for history (EMS, parent, family, police, friend...)? What history was obtained from this source @ -No Did you review nursing and triage notes (agree or disagree)? Why? @ -I reviewed and agree with nursing and triage notes Were old charts reviewed (outside hosp., previous admission, EMS record, old EKG, old radiological studies, urgent care reports/EKG's, prison records)? Report findings @ -No old charts were reviewed Differential Diagnosis (chest pain, altered mental status, abdominal pain women, abdominal pain men, vaginal bleeding, weakness, fever, dyspnea, syncope, headache, dizziness, GI bleed, back pain, seizure, CVA, palpatations, mental health, musculoskeletal)? @ -Differential Abdominal Pain Women: Appendicitis, Cholecystitis, diverticulosis, ischemic bowel, pancreatitis, hepatitis, UTI, gastroenteritis, AAA, incarcerated hernia, bowel obstruction, constipation, inflammatory bowel, hepatitis, peptic ulcer disease, splenic infarction, perforated viscus, vulvitis, ovarian torsion, PID, kidney stone, placenta abruption, this is not meant to be an all-inclusive listcable EKG interpreted by me (3pts min.). @ -None above X-rays interpreted by me (1pt min.). @ -None done CT interpreted by me (1pt min.). @ -CT abdomen and pelvis without contrast shows acute diverticulitis in the left colon and sigmoid colon. There is no free air or abscess noted. U/S interpreted by me (1pt. min.). @ -None done What testing was considered but not performed or refused? (CT, X-rays, U/S, labs)? Why? @ -None What meds were considered but not given or refused? Why? @ -None Did you discuss the management of the patient with other professionals (professionals i.e. , PA, DOOR REPAIRMAN, lab, RT, psych nurse, social worker masters, chef french, teacher, custom protection officer, casework manager)? Give summary @ -No Was smoking cessation discussed for >3mins.? @ -No Was critical care preformed (if so, how long)? @ -No Were there social determinants of health that impacted care today? How? (Homelessness, low income, unemployed, alcoholism, drug addiction, transportation, low edu. Level, literacy, decrease access to med. care, group home, rehab)? @ -No Was there de-escalation of care discussed even if they declined (Discuss DNR or withdrawal of care, Hospice)? DNR status @ -No What co-morbidities impacted this encounter? (DM, HTN, Smoking, COPD, CAD, Canc er, CVA, ARF, Chemo, Hep., AIDS, mental health diagnosis, sleep apnea, morbid obesity)? @ -None Was patient admitted / discharged? Hospital course, mention meds given and route, prescriptions, significant lab abnormalities, going to OR and other pertinent info. @ -Discharge. On examination patient is exquisitely tender to the left abdomen. Labs were obtained and were within normal range. CT abdomen and pelvis showed acute diverticulitis in the left colon and sigmoid colon. Patient received IV fluids, IV Zofran,IV reglan and IV Dilaudid for symptoms in the ER. Patient will be discharged home with a prescription for Augmentin. Patient to follow-up with PCP. Return parameters were discussed. Patient expressed understanding and agreement with the care plan. Undiagnosed new problem with uncertain prognosis? @ -No Drug Therapy requiring intensive monitoring for toxicity (Heparin, Nitro, Insulin, Cardizem)? @ -No Were any procedures done? @ -No Diagnosis/symptom? @ -Diverticulitis Acute, or Chronic, or Acute on Chronic? @ -Acute Uncomplicated (without systemic symptoms) or Complicated (systemic symptoms)? @ -Uncomplicated Side effects of treatment? @ -No Exacerbation, Progression, or Severe Exacerbation? @ -No Poses a threat to life or bodily function? How? (Chest pain, [place], [place], pneumonia, PE, COPD, DKA, ARF, appy, cholecystitis, CVA, Diverticulitis, Homicidal, Suicidal, threat to staff... and all critical care pts) @ -No - Lab Data Result diagrams: 05/29/23 12:20 05/29/23 12:20 Lab Results 05/29/23 05/29/23 05/29/23 Range/Units 12:20 12:20 12:20 WBC 9.5 (3.8-10.6) k/uL RBC 4.28 (3.80-5.40) m/uL Hgb 13.8 (11.4-16.0) gm/dL Hct 41.0 (34.0-46.0) % MCV 95.8 (80.0-100.0) fL MCH 32.1 (25.0-35.0) pg MCHC 33.5 (31.0-37.0) g/dL RDW 12.1 (11.5-15.5) % Plt Count 277 (150-450) k/uL MPV 8.0 Neutrophils % 76 % Lymphocytes % 17 % Monocytes % 4 % Eosinophils % 1 % Basophils % 0 % Neutrophils # 7.2 (1.3-7.7) k/uL Lymphocytes # 1.7 (1.0-4.8) k/uL Monocytes # 0.3 (0-1.0) k/uL Eosinophils # 0.1 (0-0.7) k/uL Basophils # 0.0 (0-0.2) k/uL Sodium 141 (137-145) mmol/L Potassium 4.5 (3.5-5.1) mmol/L Chloride 105 (98-107) mmol/L Carbon Dioxide 23 (22-30) mmol/L Anion Gap 13 mmol/L BUN 17 (7-17) mg/dL Creatinine 0.47 L (0.52-1.04) mg/dL Est GFR (CKD-EPI)AfAm >90 (>60 ml/min/1.73 sqM) Est GFR (CKD-EPI)NonAf >90 (>60 ml/min/1.73 sqM) Glucose 89 (74-99) mg/dL Plasma Lactic Acid Fermin (0.7-2.0) mmol/L Calcium 9.7 (8.4-10.2) mg/dL Total Bilirubin 1.0 (0.2-1.3) mg/dL AST 34 (14-36) U/L ALT 28 (4-34) U/L Alkaline Phosphatase 68 (38-126) U/L Total Protein 9.0 H (6.3-8.2) g/dL Albumin 4.9 (3.5-5.0) g/dL Amylase 46 (30-110) U/L Lipase 61 (23-300) U/L Urine Color Colorless Urine Appearance Clear (Clear) Urine pH 6.0 (5.0-8.0) Ur Specific [place] 1.012 (1.001-1.035) Urine Protein Negative (Negative) Urine Glucose (UA) Negative (Negative) Urine Ketones Negative (Negative) Urine Blood Negative (Negative) Urine Nitrite Negative (Negative) Urine Bilirubin Negative (Negative) Urine Urobilinogen <2.0 (<2.0) mg/dL Ur Leukocyte Esterase Negative (Negative) 05/29/23 Range/Units 12:20 WBC (3.8-10.6) k/uL RBC (3.80-5.40) m/uL Hgb (11.4-16.0) gm/dL Hct (34.0-46.0) % MCV (80.0-100.0) fL MCH (25.0-35.0) pg MCHC (31.0-37.0) g/dL RDW (11.5-15.5) % Plt Count (150-450) k/uL MPV Neutrophils % % Lymphocytes % % Monocytes % % Eosinophils % % Basophils % % Neutrophils # (1.3-7.7) k/uL Lymphocytes # (1.0-4.8) k/uL Monocytes # (0-1.0) k/uL Eosinophils # (0-0.7) k/uL Basophils # (0-0.2) k/uL Sodium (137-145) mmol/L Potassium (3.5-5.1) mmol/L Chloride (98-107) mmol/L Carbon Dioxide (22-30) mmol/L Anion Gap mmol/L BUN (7-17) mg/dL Creatinine (0.52-1.04) mg/dL Est GFR (CKD-EPI)AfAm (>60 ml/min/1.73 sqM) Est GFR (CKD-EPI)NonAf (>60 ml/min/1.73 sqM) Glucose (74-99) mg/dL Plasma Lactic Acid Fermin 1.2 (0.7-2.0) mmol/L Calcium (8.4-10.2) mg/dL Total Bilirubin (0.2-1.3) mg/dL AST (14-36) U/L ALT (4-34) U/L Alkaline Phosphatase (38-126) U/L Total Protein (6.3-8.2) g/dL Albumin (3.5-5.0) g/dL Amylase (30-110) U/L Lipase (23-300) U/L Urine Color Urine Appearance (Clear) Urine pH (5.0-8.0) Ur Specific [place] (1.001-1.035) Urine Protein (Negative) Urine Glucose (UA) (Negative) Urine Ketones (Negative) Urine Blood (Negative) Urine Nitrite (Negative) Urine Bilirubin (Negative) Urine Urobilinogen (<2.0) mg/dL Ur Leukocyte Esterase (Negative) - Radiology Data Radiology results: report reviewed, image reviewed Disposition Clinical Impression: Diverticulitis Disposition: HOME SELF-CARE Condition: Stable Instructions (If sedation given, give patient instructions): Diverticulitis (ED) Additional Instructions: Please return to the Emergency Department if symptoms worsen or any other concerns. Prescriptions: Amoxic-Pot Clav 875-125Mg [Augmentin 875-125] 1 tab PO Q12HR #20 tab Is patient prescribed a controlled substance at d/c from ED?: No Referrals: Olman Cordero DO [Primary Care Provider] - 1-2 days Time of Disposition: 15:08
[2023-05-29 12:45] LABS: Basophils % (A) 0 %; Eosinophils # (A) 0.1 k/uL (0-0.7); Eosinophils % (A) 1 %; HGB 13.8 gm/dL (11.4-16.0); Lymphocytes # (A) 1.7 k/uL (1.0-4.8); Lymphocytes % (A) 17 %; MCH 32.1 pg (25.0-35.0); MCHC 33.5 g/dL (31.0-37.0); MCV 95.8 fL (80.0-100.0); Monocytes # (A) 0.3 k/uL (0-1.0); Monocytes % (A) 4 %; Neutrophils # (A) 7.2 k/uL (1.3-7.7); Neutrophils % (A) 76 %; Platelet Count 277 k/uL (150-450); RBC 4.28 m/uL (3.80-5.40); RDW 12.1 % (11.5-15.5); WBC 9.5 k/uL (3.8-10.6)
[2023-05-29 12:58] LABS: ALT 28 U/L (4-34); African American GFR (CKD) >90 (>60 ml/min/1.73 sqM); Amylase 46 U/L (30-110); Anion Gap 13 mmol/L; Blood Urea Nitrogen 17 mg/dL (7-17); Calcium 9.7 mg/dL (8.4-10.2); Carbon Dioxide 23 mmol/L (22-30); Chloride 105 mmol/L (98-107); Glucose 89 mg/dL (74-99); Lipase 61 U/L (23-300); Non-African American GFR(CKD) >90 (>60 ml/min/1.73 sqM); Sodium 141 mmol/L (137-145)
[2023-05-29 13:00] LABS: AST 34 U/L (14-36); Albumin 4.9 g/dL (3.5-5.0); Alkaline Phosphatase 68 U/L (38-126); Potassium 4.5 mmol/L (3.5-5.1)
[2023-05-29 13:08] LABS: Appearance,Urine Clear (Clear); Bilirubin,Urine Negative (Negative); Blood,Urine Negative (Negative); Color,Urine Colorless; Glucose,Urine (UA) Negative (Negative); Ketones,Urine Negative (Negative); Leukocyte Esterase,Urine Negative (Negative); Nitrite,Urine Negative (Negative); Protein,Urine Negative (Negative); Specific Gravity,Urine 1.012 (1.001-1.035); Urobilinogen,Urine <2.0 mg/dL (<2.0)
[2023-05-29] MEDS ORDERED: METOCLOPRAMIDE 5 MG/ML 2 ML VIAL IVP STA (13:46)
[2023-05-29 17:35] VITALS: BP 117/76; PULSE 82; RESP 16; TEMP 98
== END 2023-05-29 16:22 | disposition home or self-care (01) ==
LOC: EC 09:32
DX: K57.32 Diverticulitis of large intestine without perforation or abscess without bleeding (principal); K21.9 Gastro-esophageal reflux disease without esophagitis; Z86.59 Personal history of other mental and behavioral disorders; Z79.899 Other long term (current) drug therapy
CPT/HCPCS: 36415; 80053; 82150; 83605; 83690; 85025; 81003; 74176; 99284; 96374; 96375 ×2; 96361; J2765; J2405; J1170